=== PATIENT | female | born 1995 | race Caucasian/White ===

== ENCOUNTER 2016-08-22 19:32 | Emergency (ER) | payer BC ==
[~2016-08-22] VITALS: Ht 175.3 cm; Wt 86.2 kg
[2016-08-22 19:37] VITALS: TEMP 37.3; Ht 175.3 cm; Wt 86.2 kg
[2016-08-22] MEDS ORDERED: ONDANSETRON INJ 2 MG/ML 2 ML VIAL IV STA ×2 (20:08→22:29)
[2016-08-22] MEDS ORDERED: SODIUM CHLORIDE 0.9% 1000ML 1,000 ML IV STA ×2 (20:08→20:51)
--- NOTE | 2016-08-22 20:12 | EMERGENCY ROOM VISIT NOTE ---
History First contact with patient: 20:00 Chief Complaint: FLU LIKE SX Stated Complaint: VOMITING,DEHYDRATION,STOMACH BUG History of Present Illness The patient is a 21 year old female who presents to the Emergency Room with complaints of nausea, vomiting and diarrhea. The patient's symptoms started at 3:30 AM. She has had diffuse abdominal cramping, nausea, vomiting and diarrhea. The patient rates her discomfort as 6/10. The patient states she had a fever of 101.2F at 11:30 AM but that has resolved without any treatment. The patient states she was seen at [facility] yesterday and they thought she had a urinary tract infection but she has not been able to keep down any of her medications. She denies any earache, sore throat or cough. The patient states that her roommates have all had a viral stomach bug and similar symptoms. Review of Systems A 10 system review of systems was completed with positives and pertinent negatives listed in the HPI. Past Medical/Surgical History Medical Problems: (1) Anxiety Social History Smoking Status: Never Smoker Housing Status: lives with roommate Occupation Status: student Current/Historical Medications Scheduled Control Pills ( Control Pills), 1 TAB PO DAILY Ondasetron Odt (Zofran Odt), 4 MG SL Q6H Trazodone Hcl (Trazodone), 25 MG PO HS Venlafaxine Hcl (Effexor), 75 MG PO QPM Allergies Coded Allergies: Penicillins (Verified Allergy, Unknown, Rash, 08/22/16) Pistachio (Unverified Allergy, Unknown, "THROAT CLOSES UP", 08/22/16) Physical Exam Vital Signs Date Time Temp Pulse Resp B/P Pulse Ox O2 Delivery O2 Flow Rate FiO2 08/22/16 23:26 119 18 159/94 97 Room Air 08/22/16 21:44 111 20 149/96 100 Nasal Cannula 08/22/16 19:37 37.3 126 20 143/86 98 Room Air Physical Exam VITALS: Vitals are noted on the nurse's note and reviewed by myself. Vital signs stable. The patient is afebrile. GENERAL: This is 21-year-old female, in no acute distress, nondiaphoretic, well- developed well-nourished. SKIN: The skin was without rashes, erythema, edema, or bruising. There is no tenting of the skin. Capillary reflex less than 2 seconds. HEAD: Normocephalic atraumatic. EARS: The external ears are normal in appearance. EYES: Pupils equal round and reactive to light and accommodation. Conjunctivae without injection, sclerae without icterus. Extraocular movements intact. NOSE: Patent, turbinates without inflammation or discharge. MOUTH: Mucous membranes moist. Tonsils are not enlarged. Pharynx without erythema or exudate. Uvula midline. Airway patent. Tongue does not deviate. NECK: Supple without nuchal rigidity. No JVD. HEART: Regular rate and rhythm without murmurs gallops or rubs. LUNGS: Clear to auscultation bilaterally without wheezes, rales or rhonchi. No retractions or accessory muscle use. ABDOMEN: Positive bowel sounds x 4. Soft, diffuse upper abdominal tenderness, without masses or organomegaly. MUSCULOSKELETAL: No muscle atrophy, erythema, or edema noted. Full range of motion in all extremities. Normal gait. Strength 5/5 throughout. NEURO: Patient was alert and oriented to person place and time. No focal neurological deficits. Medical Decision & Procedures Laboratory Results 08/22/16 20:18 Red Blood Count 4.81, Mean Corpuscular Volume 90.0, Mean Corpuscular Hemoglobin 31.2, Mean Corpuscular Hemoglobin Concent 34.6, Mean Platelet Volume 10.3, Neutrophils (%) (Auto) 85.3, Lymphocytes (%) (Auto) 7.7, Monocytes (%) (Auto) 6.6, Eosinophils (%) (Auto) 0.1, Basophils (%) (Auto) 0.1, Neutrophils # (Auto) 9.57, Lymphocytes # (Auto) 0.86, Monocytes # (Auto) 0.74, Eosinophils # (Auto) 0.01, Basophils # (Auto) 0.01 08/22/16 20:18 Test 08/22/16 20:18 08/22/16 20:45 White Blood Count 11.21 K/uL (4.8-10.8) Red Blood Count 4.81 M/uL (4.2-5.4) Hemoglobin 15.0 g/dL (12.0-16.0) Hematocrit 43.3 % (37-47) Mean Corpuscular Volume 90.0 fL (80-100) Mean Corpuscular Hemoglobin 31.2 pg (25-34) Mean Corpuscular Hemoglobin Concent 34.6 g/dl (32-36) Platelet Count 274 K/uL (130-400) Mean Platelet Volume 10.3 fL (7.4-10.4) Neutrophils (%) (Auto) 85.3 % Lymphocytes (%) (Auto) 7.7 % Monocytes (%) (Auto) 6.6 % Eosinophils (%) (Auto) 0.1 % Basophils (%) (Auto) 0.1 % Neutrophils # (Auto) 9.57 K/uL (1.4-6.5) Lymphocytes # (Auto) 0.86 K/uL (1.2-3.4) Monocytes # (Auto) 0.74 K/uL (0.11-0.59) Eosinophils # (Auto) 0.01 K/uL (0-0.5) Basophils # (Auto) 0.01 K/uL (0-0.2) RDW Standard Deviation 45.5 fL (36.4-46.3) RDW Coefficient of Variation 13.8 % (11.5-14.5) Immature Granulocyte % (Auto) 0.2 % Immature Granulocyte # (Auto) 0.02 K/uL (0.00-0.02) Anion Gap 14.0 mmol/L (3-11) Est Creatinine Clear Calc Drug Dose 120.2 ml/min Estimated GFR () 111.1 Estimated GFR (Non- 95.9 BUN/Creatinine Ratio 14.8 (10-20) Calcium Level 8.9 mg/dl (8.5-10.1) Total Bilirubin 1.3 mg/dl (0.2-1) Aspartate Amino Transf (AST/SGOT) 21 U/L (15-37) Alanine Aminotransferase (ALT/SGPT) 32 U/L (12-78) Alkaline Phosphatase 61 U/L (45-117) Total Protein 7.7 gm/dl (6.4-8.2) Albumin 4.0 gm/dl (3.4-5.0) Globulin 3.7 gm/dl (2.5-4.0) Albumin/Globulin Ratio 1.1 (0.9-2) Lipase 128 U/L (73-393) Urine Color DK YELLOW Urine Appearance CLOUDY (CLEAR) Urine pH 5.5 (4.5-7.5) Urine Specific [place] 1.030 (1.000-1.030) Urine Protein NEG (NEG) Urine Glucose (UA) NEG (NEG) Urine Ketones 3+ (NEG) Urine Occult Blood NEG (NEG) Urine Nitrite NEG (NEG) Urine Bilirubin NEG (NEG) Urine Urobilinogen NEG (NEG) Urine Leukocyte Esterase SMALL (NEG) Urine WBC (Auto) 10-30 /hpf (0-5) Urine RBC (Auto) 0-4 /hpf (0-4) Urine Hyaline Casts (Auto) 5-10 /lpf (0-5) Urine Epithelial Cells (Auto) >30 /lpf (0-5) Urine Bacteria (Auto) 1+ (NEG) Urine Yeast (Auto) PRESENT (NONE PRSENT) Urine Test NEG (NEG) Medications Administered Medications (Trade) Dose Ordered Sig/Gavin Route Start Time Stop Time Status Last Admin Dose Admin Sodium Chloride (Nss 1000ml) 1,000 ml @ 999 mls/hr Q1H1M STAT IV 08/22/16 20:08 08/22/16 21:08 DC 08/22/16 20:25 999 MLS/HR Ondansetron HCl 4 mg 4 mg NOW STAT IV 08/22/16 20:08 08/22/16 20:09 DC 08/22/16 20:25 4 MG Sodium Chloride (Nss 1000ml) 1,000 ml @ 999 mls/hr Q1H1M STAT IV 08/22/16 20:51 08/22/16 21:51 DC 08/22/16 21:44 999 MLS/HR Ondansetron HCl (Zofran Inj) 4 mg STK-MED ONCE .ROUTE 08/22/16 22:29 08/22/16 22:30 DC 08/22/16 22:32 4 MG Miscellaneous Medication (Gi Cocktail) 24 ml ONE STAT PO 08/22/16 23:08 08/22/16 23:09 DC 08/22/16 23:08 24 ML Ondansetron HCl (ZOFRAN ODT 4MG Home Pack) 1 homepack UD ONCE PO 08/22/16 23:30 08/22/16 23:31 DC 08/22/16 23:23 1 HOMEPACK Al Hydroxide/Mg Hydroxide (Maalox Susp) 30 ml STK-MED ONCE .ROUTE 08/22/16 23:18 08/22/16 23:20 DC 08/22/16 23:18 30 ML Lidocaine HCl (Viscous Lidocaine 2% Soln) 20 ml STK-MED ONCE .ROUTE 08/22/16 23:18 08/22/16 23:20 DC 08/22/16 23:22 20 ML ED Course The patient was seen and examined. Previous visits were reviewed. The patient does not have a fever. She has a mild leukocytosis of 11.21. She is not anemic. She does not have any significant electrolyte abnormalities. Lipase is not elevated. Urinalysis suggests contamination and dehydration. Urine test was negative. The patient was hydrated with 1 L of normal saline and given 4 mg IV Zofran She continued to have some nausea and was given an additional 4 mg IV Zofran and additional 1 L of normal saline The patient complains of reflux and was given a GI cocktail with resolution of her symptoms The patient presents to the emergency department with diffuse abdominal discomfort, nausea, vomiting and diarrhea. The patient does not have any lower abdominal tenderness on examination. I did examine her initially and again prior to discharge. She did not have any right lower quadrant tenderness but was advised to watch for localization of pain in this area and to return to the ER if she develops it. The patient's roommate all have had gastroenteritis and the patient likely has the same. She is being treated for urinary tract infection. Her urine may simply represent contamination and dehydration. She states that she will get her urine culture back tomorrow and is advised to follow-up with the culture to determine if she should continue the antibiotics. She was given a take-home pack of Zofran as well as a prescription note for school. She should return to the ER with any worsening symptoms. The case was discussed with Dr. Cisneros who agrees with the assessment and treatment plan Medical Decision DIFFERENTIAL DIAGNOSIS: Hepatitis, cholecystitis, cholangitis, biliary colic, pancreatitis, pneumonia, subdiaphragmatic abscess, appendicitis, inguinal hernia , nephrolithiasis, inflammatory bowel disease, mesenteric adenitis, peptic ulcer disease, GERD, gastritis, pancreatitis, gastroenteritis, bowel obstruction , splenic infarct, diverticulitis, mesenteric ischemia, metabolic, peritonitis , among others. Impression Primary Impression: Nausea vomiting and diarrhea Departure Information Dispostion Home / Self-Care Condition GOOD Prescriptions Ondasetron Odt (ZOFRAN ODT) 4 Mg Tab 4 MG SL Q6H for Nausea, #6 TAB Prov: Pal[place]ra, Radha A., PA-C 08/22/16 Referrals No Doctor, Assigned (PCP) Patient Instructions ED Food Poison Or Gastroenteritis, My [facility] Additional Instructions Zofran as prescribed, as needed for nausea and vomiting [place] diet and advance diet as tolerated Return to the emergency Department with any worsening symptoms, severe pain, persistent fevers Otherwise, recheck with [facility] next week
[2016-08-22 20:27] LABS: BASO % 0.1 %; BASO ABS # 0.01 K/uL (0-0.2); COMPLETE YES; EOS % 0.1 %; HEMATOCRIT 43.3 % (37-47); IG% 0.2 %; LYMPH % 7.7 %; LYMPH ABS # 0.86 K/uL (1.2-3.4); MEAN CORPUSCULAR HEMOGLOBIN 31.2 pg (25-34); MEAN CORPUSCULAR HGB CONC 34.6 g/dl (32-36); MEAN PLATELET VOLUME 10.3 fL (7.4-10.4); MONO % 6.6 %; NEUT % 85.3 %; PLATELET COUNT 274 K/uL (130-400); RED BLOOD COUNT 4.81 M/uL (4.2-5.4); WHITE BLOOD COUNT 11.21 K/uL (4.8-10.8)
[2016-08-22] MEDS ORDERED: TRAZ50TA35 PO (20:48)
[2016-08-22] MEDS ORDERED: EFF75 PO (20:48)
[2016-08-22] MEDS ORDERED: BCPILLS PO (20:48)
[2016-08-22 20:59] LABS: BUN/CREATININE RATIO 14.8 (10-20); CALCIUM 8.9 mg/dl (8.5-10.1); CREATININE 0.86 mg/dl (0.60-1.20); POTASSIUM 3.7 mmol/L (3.5-5.1)
[2016-08-22 21:02] LABS: ALB/GLOB RATIO 1.1 (0.9-2)
[2016-08-22] MEDS ORDERED: ONDA4TAB10 SL (22:08)
[2016-08-22 22:17] LABS: URINE APPEARANCE CLOUDY (CLEAR); URINE COLOR DK YELLOW; URINE EPITHELIAL CELL AUTO >30 /lpf (0-5); URINE NITRITE NEG (NEG); URINE PH 5.5 (4.5-7.5); UROBILINOGEN NEG (NEG); ZZUR CULT IF INDIC CLEAN CATCH YES
[2016-08-22 22:21] LABS: MANUAL MICROSCOPIC REQUIRED? NO; REVIEW REQ? YES; URINE BILIRUBIN NEG (NEG)
[2016-08-22] MEDS ORDERED: ONDANSETRON INJ 2 MG/ML 2 ML VIAL ONE (22:29)
[2016-08-22] MEDS ORDERED: GI COCKTAIL PO STA (23:08)
[2016-08-22] MEDS ORDERED: LIDOCAINE HCL 2% VISC SOLN 20 ML UDC ONE (23:18)
[2016-08-22] MEDS ORDERED: ALUMINUM/MAGNESIUM SUSP 30 ML UDC ONE (23:18)
[2016-08-22 23:26] VITALS: BP 159/94; PULSE 119; O2SAT 97
[2016-08-22] MEDS ORDERED: ONDANSETRON HOME PACK 4MG OD TAB PO ONE (23:30)
== END 2016-08-22 23:41 | disposition home or self-care (01) ==
LOC: C.EDB 19:35 → C.EDA 23:41
DX: R11.2 Nausea with vomiting, unspecified (principal); R19.7 Diarrhea, unspecified; F41.9 Anxiety disorder, unspecified; Z79.3 Long term (current) use of hormonal contraceptives; Z79.899 Other long term (current) drug therapy